=== PATIENT | female | born 1980 | race Two or more races ===

== ENCOUNTER 2016-07-26 02:43 | Emergency (ER) | payer OTHER ==
--- NOTE | ~2016-07-26 | EKG ---
PATIENT: SOFIA BENNETT UNIT #: [id number] Ventricular Rate: 107 BPM Atrial Rate: 107 BPM P-R Interval: 142 ms QRS Duration: 82 ms Q-T Interval: 322 ms QTC Calculation(Bezet): 429 ms P Wilder: 64 degrees Calculated R Wilder: 65 degrees Calculated T Wilder: 31 degrees Diagnosis Line: Sinus tachycardia Diagnosis Line: Otherwise normal ECG Diagnosis Line: When compared with ECG of 25-JUL-2016 20:25, Diagnosis Line: (unconfirmed) Diagnosis Line: No significant change was found Diagnosis Line: Confirmed by HOLLI ARIZMENDI MD ([id number]) on Diagnosis Line: 07/27/2016 6:37:04 AM INTERPRETING : [facility]
[~2016-07-26 02:43] MED LIST: ACYCLOVIR PO; ALB/IPRATROPIUM/1 E1 INH; AMOXIL500 M1 PO; FLEXERIL PO; IBUPROFEN800 MG PO; KEFLEX PO; KETOPROFEN PO; VICODIN 5/1 TAB 5/50 PO; VICODIN 5/500 T1 TAB PO
[2016-07-26 03:23] LABS: CALCIUM SERUM 8.7 mg/dL (8.4-10.2); CREATININE SERUM 0.9 mg/dL (0.6-1.4); GLOM FILT RATE Estimated 83.5 mL/min (>60); MAGNESIUM 1.7 mg/dL (1.6-3.0); POTASSIUM 3.5 mmol/L (3.5-5.1)
[2016-07-26 03:26] LABS: BASOPHIL# 0.1 X10e3 (0-0.3); DIFF IND NO; EOSINOPHIL# 0.2 X10e3 (0-0.7); EOSINOPHIL% 2.8 % (0.0-7.0); HEMATOCRIT 41.8 % (35.0-45.0); HEMOGLOBIN 13.9 gm/dL (12.0-16.0); LYMPHOCYTE# 2.1 X10e3 (1.0-3.5); LYMPHOCYTE% 33.6 % (17.0-45.0); MEAN CELL VOLUME 89.8 FL (83-96); MEAN CORPUSCULAR HEMOGLOBIN 29.8 PG (28-34); MEAN CORPUSCULAR HGB CONC 33.1 g/dL (30-36); MEAN PLATELET VOLUME 8.7 FL (6.5-11.5); MONOCYTE# 0.6 X10e3 (0-1.0); MONOCYTE% 9.1 % (3.0-12.0); NEUTROPHIL# 3.3 X10e3 (1.5-7.1); NEUTROPHIL% 53.5 % (40-75); PLATELET COUNT 221 X10e3 (140-420); RED BLOOD COUNT 4.66 X10e (3.90-5.30); WHITE BLOOD COUNT 6.1 X10e3 (4.0-10.5)
[2016-07-26 03:30] LABS: CULTURE INDICATED? NO; URINE APPEARANCE CLEAR; URINE BILIRUBIN NEG (NEG); URINE BLOOD NEG (NEG); URINE COLOR YELLOW; URINE GLUCOSE NEG (NEG); URINE KETONE NEG (NEG); URINE LEUKOCYTE ESTERASE NEG (NEG); URINE NITRATE NEG (NEG); URINE PROTEIN NEG (NEG); URINE SOURCE CLEAN CATCH; URINE SPECIFIC GRAVITY 1.007 (1.003-1.035); URINE UROBILINOGEN 0.2 MG/DL (NEG)
== END 2016-07-26 03:04 | disposition home or self-care (01) ==
LOC: CED 02:43
PROVIDERS: Emergency Medicine
DX: R00.2 Palpitations (principal); R20.9 Unspecified disturbances of skin sensation; J45.909 Unspecified asthma, uncomplicated; F17.200 Nicotine dependence, unspecified, uncomplicated
CPT/HCPCS: 36415; 80048; 81003; 83735; 84443; 84703; 85025; 93005; 96361; 96374; 99284; J2060

== ENCOUNTER → 2016-09-16 | Outpatient (CLI) | payer OTHER | END | disposition home or self-care (01) | LOC: CECH 12:29 | DX: R00.2 Palpitations (principal) | CPT/HCPCS: 93306 ==